=== PATIENT | female | born 1995 | race Caucasian/White ===

== ENCOUNTER 2023-12-19 09:04 | Emergency (ER) | payer SELFPAY ==
[~2023-12-19] VITALS: Ht 167.6 cm; Wt 61.0 kg
[2023-12-19 09:15] VITALS: O2SAT 100
[2023-12-19 10:10] LABS: CLARITY URINE CLEAR (CLEAR); COLOR URINE YELLOW (YELLOW); GLUCOSE URINE NEGATIVE (NEGATIVE); KETONES URINE NEGATIVE (NEGATIVE); LEUKOCYTE ESTERASE URINE NEGATIVE (NEGATIVE); NITRITE URINE NEGATIVE (NEGATIVE); OCCULT BLOOD URINE 2+ (NEGATIVE); PH URINE 5.5 (4.5-8.0); PROTEIN URINE NEGATIVE (NEGATIVE); SPECIFIC GRAVITY URINE 1.014 (1.005-1.030); UROBILINOGEN URINE 0.2 E.U./dL (0.2-1.0)
[2023-12-19 10:28] LABS: BACTERIA URINE 1+; RBC URINE 15-25 /hpf (0-2); SQUAMOUS EPITHELIAL CELL URINE 1+ /lpf (RARE/1+); YEAST URINE NONE SEEN
[2023-12-19] MEDS ORDERED: IBUP-2029 MT (10:43)
[2023-12-19] MEDS ORDERED: AMOX-494 MT (10:43)
[2023-12-19] MEDS: KETOROLAC 30MG/ML VIAL IM ONE (10:52)
[2023-12-19 11:11] VITALS: BP 121/80; PULSE 53; RESP 18; TEMP 98.1
== END 2023-12-19 11:18 | disposition home or self-care (01) ==
LOC: ER 09:19
DX: K08.89 Other specified disorders of teeth and supporting structures (principal); Z98.890 Other specified postprocedural states
CPT/HCPCS: 99283; 81003; 81025; 96372; J1885